=== PATIENT | female | born 1930 | race Caucasian/White ===

== ENCOUNTER 2016-04-22 11:05 | Outpatient (CLI) | payer MEDICARE, OTHER ==
[2015-07-06 10:24] VITALS: BP 118/52
== END 2016-04-22 11:07 ==
LOC: POD 11:05
PROVIDERS: ATTEND Podiatrist Public Medicine
DX: B35.1 Tinea unguium (principal); L60.0 Ingrowing nail; M79.674 Pain in right toe(s); M79.675 Pain in left toe(s)
CPT/HCPCS: 11721; G0463

== ENCOUNTER 2016-07-06 07:58 | Emergency (ER) | payer OTHER ==
--- NOTE | 2016-07-06 08:49 | ED Physician Documentation ---
Fall - HISTORIAN Historian: patient - HPI Stated Complaint: Left wrist pain/swelling Chief Complaint: Fall Onset: just prior to arrival Where: home Context: tripped, slipped, fell from standing. denies: became dizzy, fainted r: moderate Associated Symptoms:: no loss of consciousness Location of Pain/Injury: upper extremity (left) Injury to Right Extremity: none Injury to Left Extremity: other (wrist) - ROS CONST: no problems NEURO: denies: dizziness, anxiety MS/SKIN/LYMPH: denies: neck pain, back pain EYES/ENT: none CVS/RESP: none GI/: other (diarrhea x2 today) - PAST HX Past History: cardiac disease, other (Left leg 06/2015 DVT, depression, RLS; Surgeries: Right Hip, 10/2014; Lumbar Back 10/2014) Allergies/Adverse Reactions: Allergies Allergy/AdvReac Type Severity Reaction Status Date / Time cephalexin monohydrate Allergy Rash Verified 07/06/16 08:11 [From [facility]] Home Medications: Ambulatory Orders Medication Instructions Recorded Cyclosporine [Restasis] 1 drop EACHEYE BID 07/16/14 Gabapentin [Neurontin] 100 mg PO HS 07/16/14 Hydrochlorothiazide 25 mg PO D 07/16/14 Meloxicam [Meloxicam] 7.5 mg PO D 07/16/14 Pramipexole Di-HCl [Mirapex] 1.5 mg PO D 07/16/14 Sertraline HCl [Zoloft] 100 mg PO D 07/16/14 - SOCIAL HX Smoking History: non-smoker - FAMILY HX Family History: none - VITAL SIGNS Vital Signs: Vital Signs Temp Pulse Resp BP Pulse Ox 98.3 F 83 20 172/78 96 07/06/16 08:12 07/06/16 08:12 07/06/16 08:12 07/06/16 08:12 07/06/16 08:12 - REVIEWED ASSESSMENTS Nursing Assessment Reviewed: Yes Vitals Reviewed: Yes Progress - Progress Progress: Reviewed xray results with patient, explained patient would need reduction with orthopedics. Patient requested Tom. Last po intake - sip of water this morning, no breakfast Has not taken her morning medications. Confirmed with pharmacy, patient has not filled Xarelto since 06/13/2015. OCL placed. Patient rates her pain 06/19, refusing pain 09 Call from Tom - spoke with Belen. Patient to go to [facility], for consult and treatment by Dr Sarabia. ED Results Lab/Radiology - Radiology Radiology Impressions: EXAMINATION: Left wrist, three views. HISTORY: Pain and swelling after fall. FINDINGS: There is a comminuted intra-articular fracture of the distal radius present with impaction and dorsal displacement and angulation. The distal ulna is intact. There is diffuse soft tissue swelling of the wrist. There is degenerative changes with at the 1st carpometacarpal joint space. IMPRESSION: 1. Intraarticular comminuted distal radius fracture with impaction and dorsal displacement. - Orders Orders: ED Orders Category Date Time Status WRIST 3 VIEWS OR MORE [RAD] Stat Exams 07/06/16 08:12 Ordered Fall Physical Exam - Physical Exam General Appearance: mild distress Head: non-tender, no swelling, no obvious injury Neck: non-tender, painless ROM, trachea midline Eye: BRETT, EOMI, lids & conjunct. nml, ecchymosis (below left eye) Resp/CVS: chest non-tender, no ecchymosis, breath sounds nml, no resp. distress , heart sounds nml Abdomen: soft, no organomegaly, normal bowel sounds, no abdominal bruit, no distension Neuro: oriented x3, CN's nml as tested, sensation nml, motor nml, mood/affect nml, coagulating bath operator nml, reflexes nml, coagulating bath operator symmetrical Skin: color nml, no rash, nml palp., dry Back: normal inspection, no CVA tenderness Extremities: pelvis stable, hips non-tender, no pedal edema, nml ROM, nml color/ temp, other (left wrist with obvious deformity, patient unable to move due to signficant pain. Will not move fingers. ) Discharge Clincal Impression: Distal radius fracture, left Qualifiers: Encounter type: initial encounter Fracture alignment: displaced Qualified Code( s): S52.502A - Unspecified fracture of the lower end of left radius, initial encounter for closed fracture Home Medications: Ambulatory Orders Cyclosporine [Restasis] 1 drop EACHEYE BID 07/16/14 Gabapentin [Neurontin] 100 mg PO HS 07/16/14 Hydrochlorothiazide 25 mg PO D 07/16/14 Meloxicam [Meloxicam] 7.5 mg PO D 07/16/14 Pramipexole Di-HCl [Mirapex] 1.5 mg PO D 07/16/14 Sertraline HCl [Zoloft] 100 mg PO D 07/16/14 Condition: Stable Disposition: 02 XFER S[facility]M HOSP Decision to Admit: NO Decision Time: 09:14
[2016-07-06 09:17] LABS: BASOPHILS % 0.6 (0.0-1.5); EOSINOPHILS % 6.4 % (0.0-6.8); LYMPHOCYTES # 2.3 # k/uL (0.6-4.0); MEAN CORPUSCULAR HEMOGLOBIN 33.2 pg (28.0-34.0); MONOCYTES # 0.5 # k/uL (0.0-0.9); MONOCYTES % 6.6 % (0.0-11.0); NEUTROPHILS # 4.6 # k/uL (1.4-7.7)
[2016-07-06 09:30] LABS: eGFR (African) > 60; eGFR (Non-African) > 60
[2016-07-06 09:40] VITALS: BP 162/72
--- NOTE | 2016-07-06 14:21 | Diagnostic Imaging Report ---
[facility] [id number] [facility].[address] [address] Report Submission Date: Jul 06, 2016 8:34:32 AM CDT Patient Study Name: ABHIJIT CLARK Date: Jul 06, 2016 8:16:31 AM CDT Modality Type: CR Gender: F Description: UPPER EXTREMITY : 32 Institution: [facility] Physician IZZY DOWNING (CLOTH HANDLER) - ER EXAMINATION: Left wrist, three views. HISTORY: Pain and swelling after fall. FINDINGS: There is a comminuted intra-articular fracture of the distal radius present with impaction and dorsal displacement and angulation. The distal ulna is intact. There is diffuse soft tissue swelling of the wrist. There is degenerative changes with at the 1st carpometacarpal joint space. IMPRESSION: 1. Intraarticular comminuted distal radius fracture with impaction and dorsal displacement. Electronically signed on Jul 06, 2016 8:34:32 AM CDT by: Alex BAIRD
== END 2016-07-06 09:30 | disposition short-term general hospital (02) ==
LOC: ED 07:58
DX: S52.502A Unspecified fracture of the lower end of left radius, initial encounter for closed fracture (principal); W19.XXXA Unspecified fall, initial encounter; Y93.9 Activity, unspecified; Y99.9 Unspecified external cause status
CPT/HCPCS: 73110; 80053; 85025; 99283

== ENCOUNTER 2016-07-10 16:20 | Inpatient (IN) | payer SELFPAY ==
--- NOTE | 2016-07-13 10:41 | History and Physical Report ---
CHIEF COMPLAINT: Arm pain. HISTORY OF PRESENT ILLNESS: This is an 85-year-old female who has come in to [facility] for admission after she sustained a fall on July 06, 2016, and suffered a left distal radial fracture. She did see Dr. Sarabia in clinic and will see Dr. Mulligan at the [facility] on July 13. Her is being admitted to [facility] and she is unable to take care of herself at home, so she has elected to come to [facility]. She has been feeling okay, otherwise. She has had a lot of health problems in the past 2 years making her have a terrible gait and a high fall risk. She has had numerous physical therapies and has seen numerous specialists for this. She originally started out seeing Dr. Juarez and had a right total hip replacement. When that did not correct the problem, she saw Neurology and Dr. Schwartz and ended up having a laminectomy that still has not helped her ambulation problem. PAST MEDICAL HISTORY: 1. Depression. 2. Hypertension. 3. Osteoarthritis. 4. She has had a DVT in the past. 5. She has an ambulation/gait problem now. PAST SURGICAL HISTORY: 1. Appendectomy. 2. . 3. Cholecystectomy. 4. She has a colostomy for some reason. 5. Right total hip replacement in 2013. 6. L3-L5 laminectomy in January of 2015. 7. Now this distal radial fracture of the left wrist. MEDICATIONS: 1. Sertraline 100 mg daily. 2. Mirapex 1.5 mg at night. 3. Hydrochlorothiazide 12.5 mg daily. 4. Restasis 1 drop twice a day in both eyes. 5. Norvasc 5 mg daily. 6. Multivitamin daily. 7. Colace 100 mg daily. 8. Since she is taking tramadol 50 mg every 6 hours p.r.n. pain. 9. Aspirin 81 mg daily. 10. Meloxicam 7.5 mg daily. 11. Famotidine 20 mg daily. ALLERGIES: Keflex. CODE STATUS: Full code. IMMUNIZATIONS: She reports she has had: 1. A flu shot. 2. Pneumonia 23 and 13. 3. Zostavax. FAMILY HISTORY: Her dad had hypertension. He is . Her mother is . She believes she had hypertension also. PHYSICAL EXAMINATION: Vital Signs: Vital signs are documented on her chart. General: She is a well-nourished female in no acute distress. She is alert and oriented x3. She does have a slower gait and walks a little bit hunched over. She usually uses a walker. HEENT: TMs are clear. Pharynx is pink and moist. She has some bruising around her left eye. Neck: Supple. Lungs: Clear. Heart: Regular rate and rhythm without a murmur. Abdomen: Soft and nontender. Extremities: Left wrist is in a half splint. She has swelling and bruising of her fingers. Her extremities show some trace edema. ASSESSMENT AND PLAN: 1. Left distal radius fracture. We will continue with the appointment with Dr. Mulligan on Wednesday but she will need to get this hand up and elevated and get some ice on it to get the swelling down, as I think he will probably cast it on Wednesday. We will continue tramadol for pain and Colace for bowel problems. 2. Hypertension. Continue current medications. 3. Unsteady gait. We will have physical therapy evaluate the patient, though she has already been through a lot of therapy. Certainly, we will see if we can help, especially, with this wrist fracture. She may need a walker with a tray for her cast. 4. Osteoarthritis (OA). We will continue her meloxicam. MTDD
--- NOTE | 2016-07-15 16:10 | Discharge Summary ---
DATE OF DISCHARGE: July 15, 2016 DISCHARGE DIAGNOSES: 1. Left wrist fracture. 2. Depression. 3. Hypertension. 4. Osteoarthritis. History and physical has been dictated. HOSPITAL COURSE: The patient was admitted to [facility] as she was unable to take care of herself until she had left wrist surgery. She did have a mild cough. A chest x-ray was negative. We did tell her she could take some Mucinex. She was discharged on July 15, 2016, to have left wrist repair by Dr. Juan Manuel Mulligan at [facility]. MEDICATIONS ON DISCHARGE: 1. Sertraline 100 mg daily. 2. Mirapex 1.5 mg at night. 3. Hydrochlorothiazide 12.5 mg daily. 4. Restasis 1 drop in each eye b.i.d. 5. Norvasc 5 mg daily. 6. Multivitamin daily. 7. Colace 100 mg daily. 8. Tramadol 50 mg every 6 hours p.r.n. pain. 9. Aspirin 81 mg daily. 10. Meloxicam 7.5 mg daily. 11. Famotidine 20 mg daily. DISCHARGE ACTIVITY: Ad naomy. DISCHARGE DIET: Diet is n.p.o. DISCHARGE CONDITION: Good. [facility]
== END 2016-07-15 09:10 | disposition short-term general hospital (02) | DRG 563 ==
LOC: ICF 16:20
PROVIDERS: ADMIT Family Medicine; ATTEND Family Medicine
DX: S42.309A Unspecified fracture of shaft of humerus, unspecified arm, initial encounter for closed fracture (principal); X58.XXXA Exposure to other specified factors, initial encounter; Y93.9 Activity, unspecified; Y99.9 Unspecified external cause status

== ENCOUNTER 2016-07-14 08:57 | Outpatient (CLI) | payer OTHER ==
--- NOTE | 2016-07-14 18:55 | Diagnostic Imaging Report ---
[facility] [address] [facility].[address] [address] Report Submission Date: Jul 14, 2016 6:47:25 PM CDT Patient Study Name: ABHIJIT CLARK Date: Jul 14, 2016 9:28:49 AM CDT Modality Type: CR Gender: F Description: CHEST : 32 Institution: [facility] Physician: ALBERT MEAD - OP 2 views the chest Clinical history: Cough Findings: The heart size is normal. The pulmonary vasculature is normal. No pleural effusion, pneumothorax or alveolar consolidation. Impression: Negative Electronically signed on Jul 14, 2016 6:47:25 PM CDT by: Corbin BAIRD
== END 2016-07-14 09:00 ==
LOC: RAD 08:57
PROVIDERS: ATTEND Family Medicine
DX: R05 Cough (principal)
CPT/HCPCS: 71020

== ENCOUNTER 2016-07-16 13:55 | Inpatient (IN) | payer OTHER ==
--- NOTE | 2016-07-16 16:33 | History and Physical Report ---
History of Present Illnes - History of Present Illness Reason for Visit: SNF care to train for ADLs History of Present Illness: 85yo white female who recently fell and sustained a left distal radial fracture. Patient underwent an open reduction and internal fixation on 07-15-16. patient did well. Patient was admitted to the SNF unit for training of ADLs. Patient did not have any other injuries related to her fall. Patient did not have any intra or postoperative complications. - Past Medical History Cardiac: HTN Pulmonary: Other (previous DVT) Psych: Depression Musculoskeletal: Osteoarthritis (generalized), Other (gait distubance) - Past Surgical History Past Surgical History: Appendectomy, Cholecystectomy, , Total Hip Replacement (right), Other (colostomy with reversal) - Past Family History Mother Family History: , Other (HTN) Father Family History: , Other (HTN) - Past Social History Smoke: No Occupation: retired Alcohol: None Drugs: None Lives: With Family Domestic Violence: Negative - Health Maintenance Health Maintenance: Influenza Vaccine, Pneumococcal Vaccine Influenza Vaccine: Current for this Influenza Season Pneumonia Vaccine: Yes Resuscitation Status: Full code - Unable to Obtain History Unable to Obtain: Yes Review of Systems - Review of Systems Constitutional: negative: Fever, Chills, Sweats Eyes: negative: pain ENT: Other (? post nasal drainage). negative: Ear Pain, Ear Discharge, Nose Pain, Nose Discharge Respiratory: Cough, Dry. negative: Shortness of Breath, Hemoptysis, SOB with Excertion, Pleuritic Pain, Sputum Cardiovascular: negative: Chest Pain, Palpitations, Orthopnea, Paroxysmal Noc. Dyspnea, Light Headedness, Deferred Gastrointestinal: negative: Nausea, Vomiting, Abdominal Pain, Diarrhea, Constipation (last BM 2 days ago) Genitourinary: negative: Dysuria, Frequency, Incontinence, Hematuria, Retention Musculoskeletal: Arm Pain. negative: Neck Pain, Shoulder Pain, Back Pain Skin: negative: Rash, Lesions Neurological: negative: Weakness, Numbness, Incoordination, Change in Speech, Confusion, Seizures - Medications/Allergies Allergies/Adverse Reactions: Allergies Allergy/AdvReac Type Severity Reaction Status Date / Time cephalexin monohydrate Allergy Rash Verified 07/06/16 08:11 [From Keflex] Exam - Exam General: Alert, Oriented to Person, Oriented to Place, Oriented to Time, Cooperative HEENT: Atraumatic, Dentition Normal, Hearing Grossly Normal Neck: Normal Range of Motion. No: Lymphadenopathy Carotids: WNL Thyroid: WNL Lungs: Clear to auscultation, Normal air movement, Speaks full Sentences. No: Respiratory Distress, Wheezes, Rales, Rhonchi Cardiovascular: Regular rate, Normal S1, Normal S2, No murmurs. No: Gallops, Rubs Abdomen: Normal bowel sounds, Soft, No tenderness, No hepatospenomegaly, No masses Integumentary: Normal, [place], Warm, Other (swelling tot he left hand) Extremities: No clubbing, No cyanosis Neurological: Normal speech, Strength Equal Bilat, Normal tone, Sensation intact , Other (patient has had a nerve block that is slowly wearing off, she can move her finger but not normal) Psych/Mental Status: Mental status NL, Mood NL, Appropriate Affect, Intact Judgment Assessment/Plan - Assessment/Plan (1) Gait disturbance Status: Acute Current Visit: Yes Assessment: Will start PT and OT (2) Hypertension Status: Chronic Current Visit: Yes Qualifiers: Hypertension type: essential hypertension Qualified Code(s): I10 - Essential (primary) hypertension Assessment: continue with home meds (3) Depression Status: Chronic Current Visit: Yes Qualifiers: Depression Type: major depressive disorder Major depression recurrence: single episode Active/Remission status: currently active Major depression episode severity: mild Qualified Code(s): F32.0 - Major depressive disorder, single episode, mild Assessment: continue home med (4) Generalized osteoarthritis Status: Chronic Current Visit: Yes Assessment: monitor (5) History of DVT of lower extremity Status: Acute Current Visit: Yes Assessment: Lovenox prophalxis (6) Distal radius fracture, left Status: Acute Current Visit: No Qualifiers: Encounter type: subsequent encounter Fracture alignment: displaced Fracture healing: with routine healing Qualified Code(s): S52.502D - Unspecified fracture of the lower end of left radius, subsequent encounter for closed fracture with routine healing Assessment: s/p ORIF, will monitor wound, keep in a soft cast for 2 weeks then to be rechecked by ortho VTE Assessment - RISK FACTOR SCORE VTE RISK FACTOR SCORES: AGE OVER 60 YEARS, OBESITY, ANTICIPATED BED CONFINEMENT OR IMMOBILIZATION > 24 HOURS, DOCUMENTED HX OF VTE - RISK VTE HIGH RISK: SCORE OF 3-4 (RISK PROXIMAL DVT 4-8%) PROPHYLAXIS NEEDED
[2016-07-16] MEDS: HYDROcodone /APAP 5/325 1 EACH TABLET PO PRN (16:46)
[2016-07-16] MEDS ORDERED: ENOXAPARIN SODIUM 30 MG/0.3 ML DISP.SYRIN SQ ONE (17:18)
[2016-07-16] MEDS: FAMOTIDINE 20 MG TABLET PO SCH (17:21)
[2016-07-16 17:40] VITALS: BMI 34.5
[2016-07-16] MEDS ORDERED: ENOXAPARIN SODIUM 30 MG/0.3 ML DISP.SYRIN SQ SCH (18:00)
[2016-07-16] MEDS ORDERED: guaiFENesin/CODEINE PHOS 5ML SYR PO ONE (19:53)
[2016-07-16] MEDS: guaiFENesin/CODEINE PHOS 30ML BOTTLE PO PRN (19:55)
[2016-07-16] MEDS: traMADol HCL 50 MG TABLET PO PRN (19:55)
[2016-07-16] MEDS: GABAPENTIN 100 MG CAPSULE PO SCH (19:55)
[2016-07-16] MEDS: ACETAMINOPHEN 500 MG TABLET PO PRN (22:15)
[2016-07-17] MEDS: HYDROcodone /APAP 5/325 1 EACH TABLET PO PRN (04:13)
[2016-07-17] MEDS ORDERED: ASPIRIN EC 81 MG TABLET.DR ONE (04:20)
[2016-07-17] MEDS: FAMOTIDINE 20 MG TABLET PO SCH ×3 (06:10→16:48)
[2016-07-17] MEDS: traMADol HCL 50 MG TABLET PO PRN (07:41)
[2016-07-17] MEDS: SERTRALINE HCL 50 MG TABLET PO SCH (07:45)
[2016-07-17] MEDS: ASPIRIN 81 MG CHEW TAB PO SCH (07:47)
[2016-07-17] MEDS: MULTIVITAMIN 1 EACH TABLET PO SCH (07:47)
[2016-07-17] MEDS: amLODIPine BESYLATE 5 MG TABLET PO SCH (07:47)
[2016-07-17] MEDS: CHOLECALCIFEROL 1,000 UNIT TABLET PO SCH ×2 (07:48→07:49)
[2016-07-17] MEDS: HYDROCHLOROTHIAZIDE 25 MG TABLET PO SCH (07:48)
[2016-07-17] MEDS ORDERED: HYDROCHLOROTHIAZIDE 25 MG TABLET PO SCH (09:00)
[2016-07-17] MEDS: guaiFENesin/CODEINE PHOS 30ML BOTTLE PO PRN (10:31)
[2016-07-17] MEDS ORDERED: traMADol HCL 50 MG TABLET PO PRN (12:27)
[2016-07-17] MEDS: ENOXAPARIN SODIUM 30 MG/0.3 ML DISP.SYRIN SQ SCH (18:04)
[2016-07-17] MEDS ORDERED: AZITHROMYCIN 250 MG TABLET PO ONE (19:26)
[2016-07-17] MEDS: GABAPENTIN 100 MG CAPSULE PO SCH (20:36)
[2016-07-17] MEDS: traMADol HCL 50 MG TABLET PO SCH (20:38)
[2016-07-17] MEDS: ACETAMINOPHEN 500 MG TABLET PO PRN (20:38)
[2016-07-18] MEDS: FAMOTIDINE 20 MG TABLET PO SCH ×2 (06:31→16:48)
[2016-07-18] MEDS: amLODIPine BESYLATE 5 MG TABLET PO SCH (08:16)
[2016-07-18] MEDS: MULTIVITAMIN 1 EACH TABLET PO SCH (08:16)
[2016-07-18] MEDS: CHOLECALCIFEROL 1,000 UNIT TABLET PO SCH (08:16)
[2016-07-18] MEDS: SERTRALINE HCL 50 MG TABLET PO SCH (08:17)
[2016-07-18] MEDS: HYDROCHLOROTHIAZIDE 25 MG TABLET PO SCH (08:17)
[2016-07-18] MEDS: ASPIRIN 81 MG CHEW TAB PO SCH (08:17)
[2016-07-18] MEDS: AZITHROMYCIN 250 MG TABLET PO SCH (08:17)
[2016-07-18] MEDS: HYDROcodone /APAP 5/325 1 EACH TABLET PO PRN ×2 (08:20→16:48)
[2016-07-18] MEDS: traMADol HCL 50 MG TABLET PO SCH ×2 (08:23→20:22)
[2016-07-18] MEDS: ENOXAPARIN SODIUM 30 MG/0.3 ML DISP.SYRIN SQ SCH (16:48)
[2016-07-18] MEDS: GABAPENTIN 100 MG CAPSULE PO SCH (20:22)
[2016-07-19] MEDS: FAMOTIDINE 20 MG TABLET PO SCH ×2 (06:32→18:00)
[2016-07-19] MEDS: ASPIRIN 81 MG CHEW TAB PO SCH (08:29)
[2016-07-19] MEDS: HYDROCHLOROTHIAZIDE 25 MG TABLET PO SCH (08:30)
[2016-07-19] MEDS: AZITHROMYCIN 250 MG TABLET PO SCH (08:30)
[2016-07-19] MEDS: traMADol HCL 50 MG TABLET PO SCH ×2 (08:31→20:11)
[2016-07-19] MEDS: MULTIVITAMIN 1 EACH TABLET PO SCH (08:31)
[2016-07-19] MEDS: amLODIPine BESYLATE 5 MG TABLET PO SCH (08:31)
[2016-07-19] MEDS: CHOLECALCIFEROL 1,000 UNIT TABLET PO SCH (08:32)
[2016-07-19] MEDS: SERTRALINE HCL 50 MG TABLET PO SCH (08:38)
[2016-07-19] MEDS: ENOXAPARIN SODIUM 30 MG/0.3 ML DISP.SYRIN SQ SCH (18:00)
[2016-07-19] MEDS: HYDROcodone /APAP 5/325 1 EACH TABLET PO PRN (18:00)
[2016-07-19] MEDS: GABAPENTIN 100 MG CAPSULE PO SCH (20:11)
[2016-07-20] MEDS: FAMOTIDINE 20 MG TABLET PO SCH ×2 (06:16→17:12)
[2016-07-20] MEDS: HYDROcodone /APAP 5/325 1 EACH TABLET PO PRN (06:19)
[2016-07-20] MEDS: CHOLECALCIFEROL 1,000 UNIT TABLET PO SCH (08:06)
[2016-07-20] MEDS: AZITHROMYCIN 250 MG TABLET PO SCH (08:06)
[2016-07-20] MEDS: amLODIPine BESYLATE 5 MG TABLET PO SCH (08:07)
[2016-07-20] MEDS: MULTIVITAMIN 1 EACH TABLET PO SCH (08:07)
[2016-07-20] MEDS: ASPIRIN 81 MG CHEW TAB PO SCH (08:07)
[2016-07-20] MEDS: HYDROCHLOROTHIAZIDE 25 MG TABLET PO SCH (08:08)
[2016-07-20] MEDS: SERTRALINE HCL 50 MG TABLET PO SCH (08:08)
[2016-07-20] MEDS: traMADol HCL 50 MG TABLET PO SCH ×2 (08:12→20:25)
[2016-07-20] MEDS: ENOXAPARIN SODIUM 30 MG/0.3 ML DISP.SYRIN SQ SCH (17:12)
[2016-07-20] MEDS: GABAPENTIN 100 MG CAPSULE PO SCH (20:23)
[2016-07-20] MEDS: ACETAMINOPHEN 500 MG TABLET PO PRN (20:25)
[2016-07-21] MEDS: FAMOTIDINE 20 MG TABLET PO SCH ×2 (05:48→17:23)
[2016-07-21] MEDS: HYDROcodone /APAP 5/325 1 EACH TABLET PO PRN ×2 (05:49→17:23)
[2016-07-21] MEDS: ASPIRIN 81 MG CHEW TAB PO SCH (07:59)
[2016-07-21] MEDS: amLODIPine BESYLATE 5 MG TABLET PO SCH (08:00)
[2016-07-21] MEDS: MULTIVITAMIN 1 EACH TABLET PO SCH (08:00)
[2016-07-21] MEDS: HYDROCHLOROTHIAZIDE 25 MG TABLET PO SCH (08:00)
[2016-07-21] MEDS: SERTRALINE HCL 50 MG TABLET PO SCH (08:01)
[2016-07-21] MEDS: AZITHROMYCIN 250 MG TABLET PO SCH (08:01)
[2016-07-21] MEDS: CHOLECALCIFEROL 1,000 UNIT TABLET PO SCH (08:01)
[2016-07-21] MEDS: traMADol HCL 50 MG TABLET PO SCH ×2 (08:03→19:27)
--- NOTE | 2016-07-21 08:23 | Inpatient Progress Note ---
Subjective - Required Recertification Statement I anticipate X number of days because-include discharge plan: 7 - Review of Systems Subjective: Doing ok. Pain is ok. Objective - Exam Vitals and I&O: Vital Signs Temp 97.4 F L 07/21/16 08:03 Pulse 61 07/21/16 08:03 Resp 18 07/21/16 08:03 BP 133/61 07/21/16 08:03 Pulse Ox 93 07/21/16 08:03 Intake & Output 07/20/16 07/20/16 07/21/16 11:59 23:59 11:59 Intake Total 360 745 Balance 360 745 Weight 97.069 kg Intake: Oral 360 745 Other: Voiding Method Toilet Toilet # Voids 2 1 General: Alert, Oriented to Person, Oriented to Place, Oriented to Time, Cooperative, No acute distress Lungs: Clear to auscultation, Normal air movement, Speaks full Sentences Cardiovascular: Regular rate Assessment/Plan - Assessment/Plan (1) Distal radius fracture, left Status: Acute Current Visit: No Qualifiers: Encounter type: subsequent encounter Fracture alignment: displaced Fracture healing: with routine healing Qualified Code(s): S52.502D - Unspecified fracture of the lower end of left radius, subsequent encounter for closed fracture with routine healing Plan: Cont SNF care for PT/OT. Appt next week for suture removal and casting.
[2016-07-21] MEDS: ENOXAPARIN SODIUM 30 MG/0.3 ML DISP.SYRIN SQ SCH (17:23)
[2016-07-21] MEDS: GABAPENTIN 100 MG CAPSULE PO SCH (19:27)
[2016-07-22] MEDS: FAMOTIDINE 20 MG TABLET PO SCH ×2 (06:03→17:02)
[2016-07-22] MEDS: HYDROCHLOROTHIAZIDE 25 MG TABLET PO SCH (08:07)
[2016-07-22] MEDS: ASPIRIN 81 MG CHEW TAB PO SCH (08:07)
[2016-07-22] MEDS: MULTIVITAMIN 1 EACH TABLET PO SCH (08:09)
[2016-07-22] MEDS: SERTRALINE HCL 50 MG TABLET PO SCH (08:09)
[2016-07-22] MEDS: CHOLECALCIFEROL 1,000 UNIT TABLET PO SCH (08:09)
[2016-07-22] MEDS: amLODIPine BESYLATE 5 MG TABLET PO SCH (08:09)
[2016-07-22] MEDS: traMADol HCL 50 MG TABLET PO SCH ×2 (08:13→20:34)
[2016-07-22] MEDS: ENOXAPARIN SODIUM 30 MG/0.3 ML DISP.SYRIN SQ SCH (17:39)
[2016-07-22] MEDS: GABAPENTIN 100 MG CAPSULE PO SCH (20:34)
[2016-07-22] MEDS: guaiFENesin/CODEINE PHOS 5ML SYR PO PRN (22:25)
[2016-07-23] MEDS: guaiFENesin/CODEINE PHOS 5ML SYR PO PRN (03:54)
[2016-07-23] MEDS: FAMOTIDINE 20 MG TABLET PO SCH ×2 (05:59→16:41)
[2016-07-23] MEDS: amLODIPine BESYLATE 5 MG TABLET PO SCH (08:30)
[2016-07-23] MEDS: HYDROCHLOROTHIAZIDE 25 MG TABLET PO SCH (08:30)
[2016-07-23] MEDS: MULTIVITAMIN 1 EACH TABLET PO SCH (08:30)
[2016-07-23] MEDS: ASPIRIN 81 MG CHEW TAB PO SCH (08:31)
[2016-07-23] MEDS: SERTRALINE HCL 50 MG TABLET PO SCH (08:31)
[2016-07-23] MEDS: CHOLECALCIFEROL 1,000 UNIT TABLET PO SCH (08:31)
[2016-07-23] MEDS: traMADol HCL 50 MG TABLET PO SCH ×2 (09:04→20:35)
[2016-07-23] MEDS: ACETAMINOPHEN 500 MG TABLET PO PRN (16:43)
[2016-07-23] MEDS: ENOXAPARIN SODIUM 30 MG/0.3 ML DISP.SYRIN SQ SCH (19:00)
[2016-07-23] MEDS: BENZONATATE 100 MG CAPSULE PO PRN (19:00)
[2016-07-23] MEDS: GABAPENTIN 100 MG CAPSULE PO SCH (20:35)
[2016-07-24] MEDS: FAMOTIDINE 20 MG TABLET PO SCH ×2 (06:19→16:56)
[2016-07-24] MEDS: HYDROCHLOROTHIAZIDE 25 MG TABLET PO SCH (07:52)
[2016-07-24] MEDS: ASPIRIN 81 MG CHEW TAB PO SCH (07:52)
[2016-07-24] MEDS: SERTRALINE HCL 50 MG TABLET PO SCH (07:53)
[2016-07-24] MEDS: CHOLECALCIFEROL 1,000 UNIT TABLET PO SCH (07:53)
[2016-07-24] MEDS: amLODIPine BESYLATE 5 MG TABLET PO SCH (07:53)
[2016-07-24] MEDS: traMADol HCL 50 MG TABLET PO SCH (07:53)
[2016-07-24] MEDS: MULTIVITAMIN 1 EACH TABLET PO SCH (07:53)
[2016-07-24] MEDS: BENZONATATE 100 MG CAPSULE PO PRN ×2 (07:54→20:16)
[2016-07-24] MEDS: ENOXAPARIN SODIUM 30 MG/0.3 ML DISP.SYRIN SQ SCH (16:56)
[2016-07-24] MEDS: GABAPENTIN 100 MG CAPSULE PO SCH (20:07)
[2016-07-24] MEDS: guaiFENesin/CODEINE PHOS 5ML SYR PO PRN (21:38)
[2016-07-25] MEDS: FAMOTIDINE 20 MG TABLET PO SCH ×2 (05:33→17:10)
[2016-07-25] MEDS: ASPIRIN 81 MG CHEW TAB PO SCH (08:38)
[2016-07-25] MEDS: HYDROCHLOROTHIAZIDE 25 MG TABLET PO SCH (08:39)
[2016-07-25] MEDS: MULTIVITAMIN 1 EACH TABLET PO SCH (08:42)
[2016-07-25] MEDS: CHOLECALCIFEROL 1,000 UNIT TABLET PO SCH (08:42)
[2016-07-25] MEDS: amLODIPine BESYLATE 5 MG TABLET PO SCH (08:42)
[2016-07-25] MEDS: SERTRALINE HCL 50 MG TABLET PO SCH (08:43)
[2016-07-25] MEDS: BENZONATATE 100 MG CAPSULE PO PRN ×2 (11:23→21:49)
[2016-07-25] MEDS: ENOXAPARIN SODIUM 30 MG/0.3 ML DISP.SYRIN SQ SCH (18:02)
[2016-07-25] MEDS: GABAPENTIN 100 MG CAPSULE PO SCH (19:46)
[2016-07-25] MEDS: ACETAMINOPHEN 500 MG TABLET PO PRN (22:45)
[2016-07-26] MEDS: guaiFENesin/CODEINE PHOS 5ML SYR PO PRN ×2 (01:27→23:00)
[2016-07-26] MEDS: FAMOTIDINE 20 MG TABLET PO SCH ×2 (06:10→16:34)
[2016-07-26] MEDS: amLODIPine BESYLATE 5 MG TABLET PO SCH (08:30)
[2016-07-26] MEDS: MULTIVITAMIN 1 EACH TABLET PO SCH (08:30)
[2016-07-26] MEDS: CHOLECALCIFEROL 1,000 UNIT TABLET PO SCH (08:30)
[2016-07-26] MEDS: HYDROCHLOROTHIAZIDE 25 MG TABLET PO SCH (08:31)
[2016-07-26] MEDS: ASPIRIN 81 MG CHEW TAB PO SCH (08:33)
[2016-07-26] MEDS: SERTRALINE HCL 50 MG TABLET PO SCH (08:34)
[2016-07-26] MEDS: ENOXAPARIN SODIUM 30 MG/0.3 ML DISP.SYRIN SQ SCH (17:52)
[2016-07-26] MEDS: GABAPENTIN 100 MG CAPSULE PO SCH (19:50)
[2016-07-26] MEDS: LORATADINE 10 MG TABLET PO SCH (19:51)
[2016-07-26] MEDS: HYDROcodone /APAP 5/325 1 EACH TABLET PO PRN (23:00)
[2016-07-27] MEDS: ACETAMINOPHEN 500 MG TABLET PO PRN (01:25)
[2016-07-27] MEDS: FAMOTIDINE 20 MG TABLET PO SCH ×2 (05:16→17:58)
[2016-07-27] MEDS ORDERED: HYPROMELLOSE OPTH DROPS OP PRN (08:46)
[2016-07-27] MEDS: CHOLECALCIFEROL 1,000 UNIT TABLET PO SCH (08:53)
[2016-07-27] MEDS: amLODIPine BESYLATE 5 MG TABLET PO SCH (08:54)
[2016-07-27] MEDS: HYDROCHLOROTHIAZIDE 25 MG TABLET PO SCH (08:54)
[2016-07-27] MEDS: SERTRALINE HCL 50 MG TABLET PO SCH (08:54)
[2016-07-27] MEDS: MULTIVITAMIN 1 EACH TABLET PO SCH (08:54)
[2016-07-27] MEDS: ASPIRIN 81 MG CHEW TAB PO SCH (08:54)
[2016-07-27] MEDS: PRAMIPEXOLE DI HCL 1.5 MG PO SCH (11:31)
[2016-07-27] MEDS: ENOXAPARIN SODIUM 30 MG/0.3 ML DISP.SYRIN SQ SCH (17:58)
[2016-07-27] MEDS: BENZONATATE 100 MG CAPSULE PO PRN (20:35)
[2016-07-27] MEDS: GABAPENTIN 100 MG CAPSULE PO SCH (20:35)
[2016-07-27] MEDS: LORATADINE 10 MG TABLET PO SCH (20:36)
[2016-07-27] MEDS: rOPINIRole HCL 1 MG TABLET PO SCH (20:36)
[2016-07-27] MEDS: HYDROcodone /APAP 5/325 1 EACH TABLET PO PRN (20:38)
[2016-07-28] MEDS: FAMOTIDINE 20 MG TABLET PO SCH ×2 (06:24→16:15)
[2016-07-28] MEDS ORDERED: TUBERCULIN,PURIF.PROT.DERIV. 5 TU/0.1 ML ID ONE (07:41)
[2016-07-28] MEDS: SERTRALINE HCL 50 MG TABLET PO SCH (08:32)
[2016-07-28] MEDS: LORATADINE 10 MG TABLET PO SCH (08:32)
[2016-07-28] MEDS: HYDROCHLOROTHIAZIDE 25 MG TABLET PO SCH (08:33)
[2016-07-28] MEDS: MULTIVITAMIN 1 EACH TABLET PO SCH (08:33)
[2016-07-28] MEDS: amLODIPine BESYLATE 5 MG TABLET PO SCH (08:33)
[2016-07-28] MEDS: ASPIRIN 81 MG CHEW TAB PO SCH (08:33)
[2016-07-28] MEDS: CHOLECALCIFEROL 1,000 UNIT TABLET PO SCH (08:33)
[2016-07-28] MEDS: PRAMIPEXOLE DI HCL 1.5 MG PO SCH (14:28)
[2016-07-28] MEDS: ENOXAPARIN SODIUM 30 MG/0.3 ML DISP.SYRIN SQ SCH (17:44)
[2016-07-28] MEDS: GABAPENTIN 100 MG CAPSULE PO SCH (20:32)
[2016-07-28] MEDS: rOPINIRole HCL 1 MG TABLET PO SCH (20:33)
[2016-07-28] MEDS: BENZONATATE 100 MG CAPSULE PO PRN (20:34)
[2016-07-28] MEDS: guaiFENesin/CODEINE PHOS 5ML SYR PO PRN (21:43)
[2016-07-29] MEDS: FAMOTIDINE 20 MG TABLET PO SCH ×2 (06:04→17:26)
[2016-07-29] MEDS: ASPIRIN 81 MG CHEW TAB PO SCH (08:04)
[2016-07-29] MEDS: CHOLECALCIFEROL 1,000 UNIT TABLET PO SCH (08:05)
[2016-07-29] MEDS: PRAMIPEXOLE DI HCL 1.5 MG PO SCH (08:05)
[2016-07-29] MEDS: MULTIVITAMIN 1 EACH TABLET PO SCH (08:05)
[2016-07-29] MEDS: LORATADINE 10 MG TABLET PO SCH ×2 (08:05→20:08)
[2016-07-29] MEDS: SERTRALINE HCL 50 MG TABLET PO SCH (08:05)
[2016-07-29] MEDS: amLODIPine BESYLATE 5 MG TABLET PO SCH (08:05)
[2016-07-29] MEDS: HYDROCHLOROTHIAZIDE 25 MG TABLET PO SCH (08:05)
[2016-07-29] MEDS: ENOXAPARIN SODIUM 30 MG/0.3 ML DISP.SYRIN SQ SCH (17:28)
[2016-07-29] MEDS: GABAPENTIN 100 MG CAPSULE PO SCH (20:07)
[2016-07-29] MEDS: rOPINIRole HCL 1 MG TABLET PO SCH (20:09)
[2016-07-29] MEDS: BENZONATATE 100 MG CAPSULE PO PRN (20:10)
[2016-07-29] MEDS: guaiFENesin/CODEINE PHOS 5ML SYR PO PRN (22:15)
[2016-07-30] MEDS: FAMOTIDINE 20 MG TABLET PO SCH (05:51)
--- NOTE | 2016-07-30 07:54 | Discharge Summary ---
Discharge Summary - Discharge Sumary History of Present Illness: 85yo white female who recently fell and sustained a left distal radial fracture. Patient underwent an open reduction and internal fixation on 07-15-16. patient did well. Patient was admitted to the SNF unit for training of ADLs. Patient did not have any other injuries related to her fall. Patient did not have any intra or postoperative complications. Condition at Discharge: Stable Home Medications: Ambulatory Orders Medication Instructions Recorded Cyclosporine [Restasis] 1 drop EACHEYE BID 07/16/14 Gabapentin [Neurontin] 100 mg PO HS 07/16/14 Hydrochlorothiazide 25 mg PO D 07/16/14 Meloxicam 7.5 mg PO D 07/16/14 Pramipexole Di-HCl [Mirapex] 1.5 mg PO D 07/16/14 Sertraline HCl [Zoloft] 100 mg PO D 07/16/14 Acetaminophen [Tylenol Extra 500 mg PO TID PRN #0 tablet 07/28/16 Strength] Aspirin [Carey] 81 mg PO DAILY tab.chew 07/28/16 Cholecalciferol [Vitamin D-3] 2,000 unit PO DAILY tablet 07/28/16 amLODIPine BESYLATE [Norvasc] 5 mg PO DAILY tablet 07/28/16 Consultations this Visit: None Procedures this Visit: None Allergies/Adverse Reactions: Allergies Allergy/AdvReac Type Severity Reaction Status Date / Time cephalexin monohydrate Allergy Rash Verified 07/06/16 08:11 [From Keflex] Patient Problems: Current Active Problems Problem Status Onset Gait disturbance Acute History of DVT of lower extremity Acute Depression Chronic Generalized osteoarthritis Chronic Hypertension Chronic Discharge Summary: Patient was admitted to SNF for therapy after undergoing L distal radius repair. She did well with therapy. Due to balance issues, she needs a walker. With the distal radius fracture, she requires a platform to rest that wrist on. She progressed to meet therapy goals and was discharged home with her son to continue home health. Hospital Course: Discharge Dx: L distal radius fx. Weakness. Falls. HTN. Depression. RLS. Disposition - to [place] with her son.
[2016-07-30 08:01] VITALS: BP 161/80
[2016-07-30] MEDS: LORATADINE 10 MG TABLET PO SCH (09:33)
[2016-07-30] MEDS: ASPIRIN 81 MG CHEW TAB PO SCH (09:33)
[2016-07-30] MEDS: HYDROCHLOROTHIAZIDE 25 MG TABLET PO SCH (09:34)
[2016-07-30] MEDS: PRAMIPEXOLE DI HCL 1.5 MG PO SCH (09:35)
[2016-07-30] MEDS: amLODIPine BESYLATE 5 MG TABLET PO SCH (09:35)
[2016-07-30] MEDS: SERTRALINE HCL 50 MG TABLET PO SCH (09:36)
[2016-07-30] MEDS: CHOLECALCIFEROL 1,000 UNIT TABLET PO SCH (09:36)
[2016-07-30] MEDS: MULTIVITAMIN 1 EACH TABLET PO SCH (09:37)
== END 2016-07-30 11:40 | DRG 561 ==
LOC: SOUTH 13:55
PROVIDERS: ADMIT Family Medicine; ATTEND Family Medicine
DX: S52.502D Unspecified fracture of the lower end of left radius, subsequent encounter for closed fracture with routine healing (principal); R53.1 Weakness; Z91.81 History of falling; I10 Essential (primary) hypertension; F32.9 Major depressive disorder, single episode, unspecified
CPT/HCPCS: J1650; A9270-GY

== ENCOUNTER 2016-07-24 12:55 | Outpatient (CLI) | payer OTHER ==
[2016-07-24 07:59] VITALS: BP 152/66
== END 2016-07-24 12:56 ==
LOC: POD 12:55
PROVIDERS: ATTEND Podiatrist
DX: B35.1 Tinea unguium (principal); M79.674 Pain in right toe(s); M79.675 Pain in left toe(s)
CPT/HCPCS: G0463

== ENCOUNTER 2016-09-24 13:38 | Emergency (ER) | payer OTHER ==
[2016-09-24] MEDS: KETOROLAC TROMETHAMINE 60 MG/2 ML VIAL IM ONE (14:20)
[2016-09-24 14:31] LABS: BASOPHILS % 0.6 (0.0-1.5); EOSINOPHILS % 0.8 % (0.0-6.8); MEAN CORPUSCULAR HEMOGLOBIN 31.3 pg (28.0-34.0); MEAN CORPUSCULAR VOLUME 95.7 fl (80.0-100.0); MONOCYTES % 3.8 % (0.0-11.0); NEUTROPHILS # 3.2 # k/uL (1.4-7.7)
[2016-09-24 14:53] LABS: eGFR (African) > 60; eGFR (Non-African) > 60
--- NOTE | 2016-09-24 15:59 | Diagnostic Imaging Report ---
[facility] [address] [facility] [address] [place], [place]. [address] Report Submission Date: Sep 24, 2016 2:40:22 PM CDT Patient Study Name: ABHIJIT CLARK Date: Sep 24, 2016 2:07:28 PM CDT Modality Type: CT\SR Gender: F Description: CT BRAIN W/O CONTRAST : 32 Institution: [facility] Physician ANNE COWART - CT Brain without Contrast History: NECK PAIN AND HEAD THROBBING SINCE WEDNESDAY Technique: Transaxial CT was performed without contrast from the skull base to the vertex. Findings: Scattered bilateral white matter hypodensity is present, consistent with gliosis. Mild cerebral atrophy is present. The lateral ventricles are mildly dilated. No hemorrhage or edema-producing mass. The fourth ventricle is midline. The paranasal sinuses are clear. No skull fracture. The mastoid air cells are well developed and well aerated. Impression: 1. Mild cerebral atrophy and white matter gliosis. 2. No acute cerebral pathology. Electronically signed on Sep 24, 2016 2:40:22 PM CDT by: Alex Navarro [facility]PITALTangela
--- NOTE | 2016-09-24 15:59 | Diagnostic Imaging Report ---
[facility] [address] [facility] [address] [place] [address]. [address] Report Submission Date: Sep 24, 2016 2:43:10 PM CDT Patient Study Name: ABHIJIT CLARK Date: Sep 24, 2016 2:09:52 PM CDT Modality Type: CT\SR Gender: F Description: CT C-SPINE W/O CONTRAS : 32 Institution: [facility] Physician ANNE COWART - ER EXAMINATION: CT cervical spine without contrast HISTORY: Neck pain TECHNIQUE: Tomographic images of the cervical spine were obtained without the use of intravenous contrast according to standard protocol. FINDINGS: There is no evidence of acute fracture. There is no subluxation. The odontoid process is intact. There is intervertebral disc space narrowing at multiple levels including C4-C5 , C5-C6, and C6-C7. There is right paracentral disc bulge and spurring present at these levels resulting in right neural foraminal stenosis. There is also mild central canal stenosis at C6-C7 . There is atherosclerosis of the aorta. The lung apices are clear. IMPRESSION: 1. No acute fracture subluxation. 2. Multilevel spondylosis as described above. Electronically signed on Sep 24, 2016 2:43:10 PM CDT by: Alex BAIRD
[2016-09-24 17:06] VITALS: BP 142/71
--- NOTE | 2016-09-24 22:14 | ED Physician Documentation ---
Headache - HISTORIAN Historian: patient - HPI Stated Complaint: pain head Chief Complaint: Headache Additional Information: since 09/21/16 Onset: days ago (3) Timing: still present Exposure To: none Severity: moderate Quality: throbbing Associated Symptoms: neck pain. denies: fever, chills, sweating, problems with vision, sensitivity to light, nausea, vomiting, speech problems, weakness, trouble walking, tingling, numbness, dizziness, light-headedness Preceding Symptoms: denies: visual disturbance, scotoma, typical of prior aura(s ) Exacerbated By: denies: light, noise, movement, position Further Comments: no - ROS NEURO/PSYCH: denies: confusion, anxiety, depression, fainting EYES/ENT: denies: sore throat, difficulty swallowing, sinus pain, drainage CVS/RESP: none GI/: denies: abdominal pain, diarrhea, problems urinating, incontinence MS/SKIN/LYMPH: denies: muscle aches, back pain, rash, skin lesions, swollen glands all systems neg except as marked: Yes - PAST HX Medical History: other (see nurses notes) Surgical History: other (see nurses notes) Immunizations: referred to PCP Allergies/Adverse Reactions: Allergies Allergy/AdvReac Type Severity Reaction Status Date / Time cephalexin monohydrate Allergy Rash Verified 09/24/16 14:16 [From Keflex] Home Medications: Ambulatory Orders Medication Instructions Recorded Cyclosporine [Restasis] 1 drop EACHEYE BID 07/16/14 Gabapentin [Neurontin] 100 mg PO HS 07/16/14 Hydrochlorothiazide 25 mg PO D 07/16/14 Meloxicam 7.5 mg PO D 07/16/14 Pramipexole Di-HCl [Mirapex] 1.5 mg PO D 07/16/14 Sertraline HCl [Zoloft] 100 mg PO D 07/16/14 Acetaminophen [Tylenol Extra 500 mg PO TID PRN #0 tablet 07/28/16 Strength] Aspirin [Carey] 81 mg PO DAILY tab.chew 07/28/16 Cholecalciferol [Vitamin D-3] 2,000 unit PO DAILY tablet 07/28/16 amLODIPine BESYLATE [Norvasc] 5 mg PO DAILY tablet 07/28/16 - SOCIAL HX Smoking History: non-smoker Alcohol Use: none Drug Use: none - Family HX Family History: none - VITAL SIGNS Vital Signs: Vital Signs Temp Pulse Resp BP Pulse Ox 37.1 F L 63 18 142/71 98 09/24/16 17:04 09/24/16 17:04 09/24/16 17:04 09/24/16 17:04 09/24/16 17:04 - REVIEWED ASSESSMENTS Nursing Assessment Reviewed: Yes Vitals Reviewed: Yes Progress - Results/Orders Results/Orders: ct head and c-spine, cbc, cmp, ua ordered - Progress Progress: pt. given 30 mg toradol ivp with improvement in er Critical Care Note - Critical Care Note Total Time (mins): 0 ED Results Lab/Radiology - Lab Results Lab Results: Lab Results 09/24/16 09/24/16 14:25 14:25 WBC 4.90 K/ul K/ul (4.00-12.00) RBC 4.31 M/ul M/ul (3.90-5.20) Hgb 13.5 g/dL g/dL (12.0-16.0) Hct 41.3 % % (34.5-46.5) MCV 95.7 fl fl (80.0-100.0) MCH 31.3 pg pg (28.0-34.0) MCHC 32.8 g/dL g/dL (30.0-36.0) RDW 13.4 % % (11.3-14.3) Plt Count 142 K/mm3 K/mm3 (130-400) Neut % (Auto) 64.8 % % (39.0-79.0) Lymph % (Auto) 27.8 % % (16.0-50.0) [place] % (Auto) 3.8 % % (0.0-11.0) Eos % (Auto) 0.8 % % (0.0-6.8) Baso % (Auto) 0.6 (0.0-1.5) Neut # 3.2 # k/uL # k/uL (1.4-7.7) Lymph # 1.4 # k/uL # k/uL (0.6-4.0) [place] # 0.2 # k/uL # k/uL (0.0-0.9) Eos # 0.0 # k/uL # k/uL (0.0-0.6) Baso # 0.0 # k/uL # k/uL (0.0-0.5) Reactive Lymphs % 2.2 % % (0.0-5.0) Reactive Lymphs # 0.1 # k/uL # k/uL (0.0-0.8) Sodium 141 mmol/L mmol/L (136-145) Potassium 3.6 mmol/L mmol/L (3.5-5.0) Chloride 95 mmol/L L mmol/L (98-110) Carbon Dioxide 28 mmol/L mmol/L (20-32) BUN 20 mg/dL mg/dL (10-26) Creatinine 1.1 mg/dL mg/dL (0.4-1.5) Estimated Creat Clear 68 Est GFR ( Amer) > 60 (60 - ) Est GFR (Non-Af Amer) > 60 (60 - ) Glucose 123 mg/dL H mg/dL (70-99) Calcium 9.3 mg/dL mg/dL (8.5-10.5) Total Bilirubin 0.3 mg/dL mg/dL (0.2-1.2) AST 35 U/L U/L (0-41) ALT 23 U/L U/L (0-45) Alkaline Phosphatase 65 U/L U/L (46-116) Total Protein 7.1 g/dL g/dL (6.0-8.5) Albumin 3.9 g/dL g/dL (3.0-5.5) - Radiology Radiology Impressions: ct head and c-spine neg except for some osteophytes - Orders Orders: ED Orders Category Date Time Status CT BRAIN W/O CONTRAST Stat Exams 09/24/[address] C-SPINE W/O CONTRAST Stat Exams 09/24/16 Completed CBC/PLATELET/DIFF Routine Lab 09/24/16 14:25 Completed CMP Routine Lab 09/24/16 14:25 Completed URINALYSIS Routine Lab 09/24/16 14:01 Ordered Ketorolac Tromethamine [Toradol] Med 09/24/16 14:02 Discontinued 60 mg IM NOW ONE Oxygen Daily Oxygen 09/24/16 14:45 Ordered Headache Physical Exam - EXAM General Appearance: alert, mild distress EENT: no facial swelling, eyes nml inspection Neck: thyroid normal, other (tenderness left occipital area) Respiratory: no resp distress, chest non-tender, breath sounds normal CVS: reg. rate & rhythm, heart sounds nml Abdomen: non-tender, no organomegaly, nml bowel sounds Skin: color nml, no rash Extremitites: non-tender, normal range of motion, no evidence of injury, no edema - NEURO/PSYCH Higher Functions: alert, oriented x3 Cranial: nml as tested, no evidence of acute CVA Cerebellar: nml as tested Sensorimotor: motor nml, sensation nml Discharge Clincal Impression: Muscle tension headache Referrals: Hang Suarez MD [Primary Care Provider] - 2 Days Home Medications: Ambulatory Orders Cyclosporine [Restasis] 1 drop EACHEYE BID 07/16/14 Gabapentin [Neurontin] 100 mg PO HS 07/16/14 Hydrochlorothiazide 25 mg PO D 07/16/14 Meloxicam 7.5 mg PO D 07/16/14 Pramipexole Di-HCl [Mirapex] 1.5 mg PO D 07/16/14 Sertraline HCl [Zoloft] 100 mg PO D 07/16/14 Acetaminophen [Tylenol Extra Strength] 500 mg PO TID PRN #0 tablet 07/28/16 Aspirin [Carey] 81 mg PO DAILY tab.chew 07/28/16 Cholecalciferol [Vitamin D-3] 2,000 unit PO DAILY tablet 07/28/16 amLODIPine BESYLATE [Norvasc] 5 mg PO DAILY tablet 07/28/16 Comments: discharged with scripts for parafon forte dsc 500 mg 1 p.o. qid and meloxicam 7.5 mg 1 p.o. bid x 5 days Condition: Stable Disposition: 01 HOME, SELF-CARE Decision to Admit: NO Decision Time: 17:00
[2016-09-25 05:13] LABS: APPEARANCE,URINE CLEAR (CLEAR); COLOR,URINE YELLOW (YELLOW); OCCULT BLOOD,URINE 1+ (NEGATIVE); PH URINE 5.5 (5.0 - 8.0); UROBILINOGEN URINE 0.2 Eu (0.2-1.0)
== END 2016-09-24 17:04 | disposition home or self-care (01) ==
LOC: ED 13:38
DX: G44.209 Tension-type headache, unspecified, not intractable (principal)
CPT/HCPCS: 36415; 70450; 72125; 80053; 81002; 85025; 99283; J1885

== ENCOUNTER 2016-10-02 09:16 | Emergency (ER) | payer OTHER ==
[2016-10-02 09:37] VITALS: BP 145/71
--- NOTE | 2016-10-02 09:56 | ED Physician Documentation ---
Lower Extremity Problem - HISTORIAN Historian: patient, child - HPI Stated Complaint: right knee pain Chief Complaint: Lower Extremity Problem Additional Information: chronic rt knee pain Onset: days ago (months has been to several different doctors fail to find etiol ) Timing: still present, worse Duration: intermittent episodes Recent Injury: No Severity: moderate (walks w/2 canes) Quality: pain, tenderness, tingling Exacerbated By: nothing, walking, movement Relieved By: nothing Further Comments: yes (has had rt hip surgery-little help) - ROS CONST: no problems CVS/RESP: denies: chest pain, shortness of breath GI/: denies: abdominal pain, problems urinating NERUO/PSYCH: difficulty walking - PAST HX Past History: intervertebral disc dis. PE Risk Factors: hypertension Other History: other (djd) Surgeries/Procedures: back surgery, appendectomy, cholecystectomy, Allergies/Adverse Reactions: Allergies Allergy/AdvReac Type Severity Reaction Status Date / Time cephalexin monohydrate Allergy Rash Verified 10/02/16 09:37 [From Keflex] Home Medications: Ambulatory Orders Medication Instructions Recorded Cyclosporine [Restasis] 1 drop EACHEYE BID 07/16/14 Gabapentin [Neurontin] 100 mg PO HS 07/16/14 Hydrochlorothiazide 25 mg PO D 07/16/14 Meloxicam 7.5 mg PO D 07/16/14 Pramipexole Di-HCl [Mirapex] 1.5 mg PO D 07/16/14 Sertraline HCl [Zoloft] 100 mg PO D 07/16/14 Acetaminophen [Tylenol Extra 500 mg PO TID PRN #0 tablet 07/28/16 Strength] Aspirin [Carey] 81 mg PO DAILY tab.chew 07/28/16 Cholecalciferol [Vitamin D-3] 2,000 unit PO DAILY tablet 07/28/16 amLODIPine BESYLATE [Norvasc] 5 mg PO DAILY tablet 07/28/16 - SOCIAL HX Smoking History: non-smoker Alcohol Use: none Drug Use: none - FAMILY HX Family History: no significant history - VITAL SIGNS Vital Signs: Vital Signs Temp Pulse Resp BP Pulse Ox 98.0 F 70 16 145/71 93 10/02/16 09:27 10/02/16 09:27 10/02/16 09:27 10/02/16 09:27 10/02/16 09:27 - REVIEWED ASSESSMENTS Nursing Assessment Reviewed: Yes Vitals Reviewed: Yes Lower Extremity Problem - EXAM General Appearance: moderate distress Neuro/Tendon: no evidence tendon injury, sensory deficit RESPIRATORY: no resp distress, chest non-tender, breath sounds normal CVS: reg rate & rhythm, heart sounds normal JOINT: No: joints nml, nml ROM, Nml gait/weight bearing VASCULAR: no vascular compromise NEURO/PSYCH: oriented X3, motor nml, sensation nml, mood/affect nml, cognition normal SKIN: warm/dry, normal color. No: cyanosis, diaphoresis, jaundice Discharge Clincal Impression: chronic rt knee pain Referrals: Hang Suarez MD [Primary Care Provider] - 2 Days Home Medications: Ambulatory Orders Cyclosporine [Restasis] 1 drop EACHEYE BID 07/16/14 Gabapentin [Neurontin] 100 mg PO HS 07/16/14 Hydrochlorothiazide 25 mg PO D 07/16/14 Meloxicam 7.5 mg PO D 07/16/14 Pramipexole Di-HCl [Mirapex] 1.5 mg PO D 07/16/14 Sertraline HCl [Zoloft] 100 mg PO D 07/16/14 Acetaminophen [Tylenol Extra Strength] 500 mg PO TID PRN #0 tablet 07/28/16 Aspirin [Carey] 81 mg PO DAILY tab.chew 07/28/16 Cholecalciferol [Vitamin D-3] 2,000 unit PO DAILY tablet 07/28/16 amLODIPine BESYLATE [Norvasc] 5 mg PO DAILY tablet 07/28/16 Comments: must get under care orthopedic surgeon and f/u as directed-apparently she sees several different phys"they say they cant help me". she under staands this tkoday will just be temporary. Condition: Fair Disposition: 01 HOME, SELF-CARE Decision to Admit: NO Decision Time: 09:56
== END 2016-10-02 09:58 | disposition home or self-care (01) ==
LOC: ED 09:16
DX: M25.561 Pain in right knee (principal)
CPT/HCPCS: 99283

== ENCOUNTER 2016-10-21 08:37 | Outpatient (CLI) | payer OTHER ==
[2016-07-22 09:34] VITALS: BP 136/67
== END 2016-10-21 08:40 ==
LOC: POD 08:37
PROVIDERS: ATTEND Podiatrist Public Medicine
DX: B35.1 Tinea unguium (principal); L60.0 Ingrowing nail; M79.675 Pain in left toe(s); M79.674 Pain in right toe(s)
CPT/HCPCS: 11721; G0463

== ENCOUNTER 2017-02-27 09:06 | Emergency (ER) | payer OTHER ==
[2017-02-27] MEDS ORDERED: methylPREDNISolone ACETATE 80 MG/ML VIAL IM ONE (09:19)
[2017-02-27] MEDS ORDERED: methylPREDNISolone ACETATE 80 MG/ML VIAL IM PRN (09:20)
[2017-02-27 09:21] VITALS: BP 169/77
--- NOTE | 2017-02-27 09:37 | ED Physician Documentation ---
General Adult - HISTORIAN Historian: patient, spouse - HPI Stated Complaint: back pain Chief Complaint: General Adult Additional Information: mid dorsal exab back pain after reached high to get object then return it approx 1 week ago Timing: still present, persistent since Severity: moderate Further Comments: yes (has sig chronic back pain and rheumatoid plus djd and anxiety=-accd to daughter) - ROS CONST: no problems EYES/ENT: denies: problems with vision CVS/RESP: none GI/: none MS/SKIN/LYMPH: none NEURO/PSYCH: denies: headache, fainting, dizziness - PAST HX Past History: hypertension, other (djd rheumatoid) Allergies/Adverse Reactions: Allergies Allergy/AdvReac Type Severity Reaction Status Date / Time cephalexin monohydrate Allergy Rash Verified 02/27/17 09:09 [From [facility]] Home Medications: Ambulatory Orders Medication Instructions Recorded Cyclosporine [Restasis] 1 drop EACHEYE BID 07/16/14 Gabapentin [Neurontin] 100 mg PO HS 07/16/14 Hydrochlorothiazide 25 mg PO D 07/16/14 Meloxicam 7.5 mg PO D 07/16/14 Pramipexole Di-HCl [Mirapex] 1.5 mg PO D 07/16/14 Sertraline HCl [Zoloft] 100 mg PO D 07/16/14 Acetaminophen [Tylenol Extra 500 mg PO TID PRN #0 tablet 07/28/16 Strength] Aspirin [Carey] 81 mg PO DAILY tab.chew 07/28/16 Cholecalciferol [Vitamin D-3] 2,000 unit PO DAILY tablet 07/28/16 amLODIPine BESYLATE [Norvasc] 5 mg PO DAILY tablet 07/28/16 Hydrocodone/Acetaminophen 1 - 2 tab PO Q6 PRN 02/27/17 [Hydrocodon-Acetaminophn 10-325] Lorazepam [Ativan] 0.5 mg PO HS #10 tablet 02/27/17 Vit C/E/Zn/Coppr/Lutein/Zeaxan 1 tab PO DAILY 02/27/17 [Preservision Areds 2 Softgel] predniSONE [Deltasone] 5 mg PO DAILY 02/27/17 predniSONE [Deltasone] 10 mg PO TID #12 tablet 02/27/17 - SOCIAL HX Smoking History: non-smoker Alcohol Use: none Drug Use: none - FAMILY HX Family History: No - VITAL SIGNS Vital Signs: Vital Signs Temp Pulse Resp BP Pulse Ox 98.0 F 82 19 169/77 97 02/27/17 09:10 02/27/17 09:10 02/27/17 09:10 02/27/17 09:10 02/27/17 09:10 - REVIEWED ASSESSMENTS Nursing Assessment Reviewed: Yes Vitals Reviewed: Yes ED Results Lab/Radiology - Orders Orders: ED Orders Category Date Time Status methylPREDNISolone ACETATE [Depo-Medrol] Med 02/27/17 09:19 Discontinued 80 mg IM .STK-MED ONE methylPREDNISolone ACETATE [Depo-Medrol] Med 02/27/17 09:20 Ordered 80 mg IM NOW PRN General Adult Physical Exam - PHYSICAL EXAM GENERAL APPEARANCE: moderate distress EENT: eye inspection normal NECK: normal inspection RESPIRATORY: no resp distress CVS: reg rate & rhythm, heart sounds normal ABDOMEN: soft, non-tender BACK: CVA tenderness (R), CVA tenderness (L) SKIN: warm/dry, normal color. No: cyanosis, diaphoresis, jaundice EXTREMITIES: non-tender, normal range of motion NEURO: oriented X3, motor nml, sensation nml, mood/affect nml Discharge Clincal Impression: acute exaberation chronid back pain, rheumatoid arthritis htn, chroic anxiety Prescriptions: Lorazepam [Ativan] 0.5 mg PO HS #10 tablet predniSONE [Deltasone] 10 mg PO TID #12 tablet Referrals: Primary Doctor,No [Primary Care Provider] - 2 Days Comments: spoke to daughter per phone Condition: Good Disposition: 01 HOME, SELF-CARE Decision to Admit: NO Decision Time: 09:41
== END 2017-02-27 09:46 | disposition home or self-care (01) ==
LOC: ED 09:06
DX: M54.89 Other dorsalgia (principal); M06.9 Rheumatoid arthritis, unspecified; I10 Essential (primary) hypertension; F41.9 Anxiety disorder, unspecified
CPT/HCPCS: 99283; J1040

== ENCOUNTER → 2017-03-19 | Outpatient (CLI) | payer OTHER ==
[2017-02-27 09:21] VITALS: BP 169/77
[2017-03-19 11:00] LABS: BASOPHILS % 0.5 (0.0-1.5); EOSINOPHILS % 4.6 % (0.0-6.8); MEAN CORPUSCULAR VOLUME 97.8 fl (80.0-100.0); MONOCYTES % 5.3 % (0.0-11.0); NEUTROPHILS # 5.9 # k/uL (1.4-7.7)
[2017-03-19 11:04] LABS: APPEARANCE,URINE Slightly Cloudy (CLEAR); COLOR,URINE Yellow (YELLOW); OCCULT BLOOD,URINE Negative (NEGATIVE); UROBILINOGEN URINE 0.2 Eu (0.2-1.0)
[2017-03-19 11:32] LABS: eGFR (African) > 60; eGFR (Non-African) > 60
== END ==
LOC: LAB 10:19
PROVIDERS: ATTEND Pain Medicine Interventional Pain Medicine
DX: R35.0 Frequency of micturition (principal); E55.9 Vitamin D deficiency, unspecified; Z79.01 Long term (current) use of anticoagulants; Z01.812 Encounter for preprocedural laboratory examination
CPT/HCPCS: 36415; 80048; 81002; 82306; 83970; 84155; 84165; 85025; 85610; 85651; 85730; 86140; 87086

== ENCOUNTER 2017-04-21 08:42 | Outpatient (CLI) | payer OTHER | END 2017-04-21 08:43 | LOC: POD 08:42 | PROVIDERS: ATTEND Podiatrist Public Medicine | DX: B35.1 Tinea unguium (principal); L60.0 Ingrowing nail; M79.674 Pain in right toe(s); M79.675 Pain in left toe(s) | CPT/HCPCS: 11721; G0463 ==

== ENCOUNTER 2017-04-23 11:00 | Outpatient (CLI) | payer OTHER ==
--- NOTE | 2017-04-26 13:10 | CONSULTATION REPORT ---
Dear Dr. Suarez: HISTORY OF PRESENT ILLNESS: I understand you have been taking care of Seda Bautista. This is a lady I first met on December 23, 2016, for arthritis. As it turns out, she has seropositive rheumatoid arthritis. I managed to get her down to 5 mg of prednisone and Plaquenil and she seems to do well with that. However, since I last saw her, she fell and had a thoracic spine fracture and underwent either a kyphoplasty or a vertebroplasty with Dr. Ganesh Rai. She came to see me at my [facility]. Most of her pain continues to be in the thoracic spine and some radiating into the left buttock. Otherwise, she denied any significant joint swelling of her hands and wrists. She has been under a lot of stress. Her suffers from dementia and apparently had an "aneurysm." Things are difficult at home. PAST MEDICAL HISTORY: 1. Right hip replacement. 2. Hypertension. 3. COPD. 4. Depression. 5. Obstructive sleep apnea. 6. Osteoarthritis. 7. Appendectomy. 8. . 9. Colostomy with reversal. 10. History of DVT. REVIEW OF SYSTEMS: No fevers, chills, sweats, chest pain, nausea, vomiting, or diarrhea. She presently is required to use a walker. Lots of stress and anxiety regarding her home situation. PHYSICAL EXAMINATION: VITAL SIGNS: Height: 5 feet 5 inches. Weight: 213. T: 97.4, R: 20, P: 80 , BP: 157/80. HEENT: Atraumatic. EOM's are intact. No temporal artery tenderness. Lungs: Clear. Heart: Regular rhythm. Abdomen: Soft. Vascular: No edema or cyanosis. Joint Exam: No active synovitis at the DIPs, PIPs, or MCPs. She has ulnar deviation at the MCPs with some enlargement. Wrists with good range of motion. Elbows and shoulders are unremarkable. Limited exam of the hips reveal no pain referred to her groin. Knees are unremarkable. Ankles and MTPs are nontender. IMPRESSION: 1. Seropositive rheumatoid arthritis. I am going to continue her on prednisone 5 mg daily and Plaquenil 200 mg twice a day. 2. Osteoporotic T-spine fracture. She apparently has had bone densities done in [place] and she is scheduled for repeat. I understand she is presently being evaluated at the [facility]. I would recommend, depending on the DEXA, Forteo or Prolia. PLAN: I will see her back in 4 months. I have asked Secretary To The Vice President and the Division of Aging to assist Mrs. Bautista and her at this time. Thank you very much. Best regards, cc: Dr. Hang BAIRD
== END 2017-04-23 11:02 ==
LOC: RHEU 11:00
PROVIDERS: ATTEND Internal Medicine
DX: M05.9 Rheumatoid arthritis with rheumatoid factor, unspecified (principal); M80.88XA Other osteoporosis with current pathological fracture, vertebra(e), initial encounter for fracture
CPT/HCPCS: 99214; G0463

== ENCOUNTER 2017-07-21 09:29 | Outpatient (CLI) | payer OTHER | END 2017-07-21 09:30 | LOC: POD 09:29 | PROVIDERS: ATTEND Podiatrist Public Medicine | DX: B35.1 Tinea unguium (principal); L60.0 Ingrowing nail; M79.674 Pain in right toe(s); M79.675 Pain in left toe(s) | CPT/HCPCS: 11721; G0463 ==

== ENCOUNTER 2017-08-17 15:48 | Outpatient (CLI) | payer OTHER | END 2017-08-17 15:50 | LOC: LAB 15:48 | PROVIDERS: ATTEND Clinical Nurse Specialist Medical-Surgical | DX: M80.08XS Age-related osteoporosis with current pathological fracture, vertebra(e), sequela (principal); M81.0 Age-related osteoporosis without current pathological fracture; E55.9 Vitamin D deficiency, unspecified; R26.9 Unspecified abnormalities of gait and mobility | CPT/HCPCS: 36415; 82306; 82310 ==

== ENCOUNTER 2017-08-27 09:04 | Outpatient (CLI) | payer OTHER ==
--- NOTE | 2017-08-27 14:12 | OP Clinic Progress Note ---
REASON FOR VISIT: Seda Bautista returns for follow up on her seropositive rheumatoid arthritis. She is doing well on prednisone 5 mg daily and Plaquenil 200 mg twice a day. She has had no new joint deformities. No significant swelling, pain, or morning stiffness. She has osteoporosis and is presently on Forteo and doing well with that. She gets a little injection site reaction but manages to get along. Her back pain is doing well. She is using a walker. Once again, her and her came without their medication list and he has dementia causing significant anxiety. REVIEW OF SYSTEMS: Rest of the systems are reviewed and no fevers, chills, sweats, chest pain, shortness of breath, cough, wheezing, nausea, vomiting, or diarrhea. PAST MEDICAL HISTORY: 1. Right hip replacement. 2. Hypertension. 3. COPD. 4. Depression. 5. Obstructive sleep apnea. 6. Osteoarthritis. 7. Appendectomy. 8. . 9. Colostomy reversal. 10. History of a DVT. 11. Seropositive RA. 12. Osteoporosis. PHYSICAL EXAMINATION: VITAL SIGNS: Height: 5 feet 7 inches. Weight: 203. T: 97.1, R: 20, heart rate 70, BP: 135/63. She is using a walker. HEENT: Grossly unremarkable. LUNGS: Clear. HEART: Regular rate and rhythm. ABDOMEN: Soft and nontender. VASCULAR: Trace edema but no cyanosis. JOINTS: No synovitis at the DIPs, PIPs, and MCPs, wrists, elbows, shoulders, hips, knees, ankles and feet. She has ulnar deviation of her MCPs, worse on the left than the right. 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 IMPRESSION: 1. Seropositive rheumatoid arthritis, doing well on her present regimen. 2. Osteoporosis, agree with Forteo. PLAN: 1. I will see her in 6 months. 2. I asked the and the to have a list of their medications available at all times in their wallet, glove compartment of the car, and her purse. Thank you very much. Best regards, cc: Dr. Hang Suarez [facility]
== END 2017-08-27 12:29 ==
LOC: RHEU 09:04
PROVIDERS: ATTEND Internal Medicine
DX: M05.9 Rheumatoid arthritis with rheumatoid factor, unspecified (principal); M81.0 Age-related osteoporosis without current pathological fracture
CPT/HCPCS: 99214; G0463

== ENCOUNTER 2017-11-03 08:50 | Outpatient (CLI) | payer OTHER | END 2017-11-03 08:53 | LOC: POD 08:50 | PROVIDERS: ATTEND Podiatrist Public Medicine | DX: B35.1 Tinea unguium (principal); L60.0 Ingrowing nail; M79.674 Pain in right toe(s); M79.675 Pain in left toe(s) | CPT/HCPCS: 11721; G0463 ==

== ENCOUNTER 2018-06-17 10:25 | Outpatient (CLI) | payer OTHER | END 2018-06-17 10:26 | LOC: LAB 10:25 | PROVIDERS: ATTEND Clinical Nurse Specialist Medical-Surgical | DX: M81.0 Age-related osteoporosis without current pathological fracture (principal); E55.9 Vitamin D deficiency, unspecified; R26.9 Unspecified abnormalities of gait and mobility; Z87.310 Personal history of (healed) osteoporosis fracture | CPT/HCPCS: 36415; 82306; 82310 ==

== ENCOUNTER 2018-07-22 11:20 | Outpatient (CLI) | payer OTHER | END 2018-07-22 11:30 | LOC: LAB 11:20 | PROVIDERS: ATTEND Clinical Nurse Specialist Medical-Surgical | DX: M81.0 Age-related osteoporosis without current pathological fracture (principal); E55.9 Vitamin D deficiency, unspecified; R26.9 Unspecified abnormalities of gait and mobility; Z87.310 Personal history of (healed) osteoporosis fracture | CPT/HCPCS: 36415; 82310 ==

== ENCOUNTER 2018-08-23 16:00 | Emergency (ER) | payer OTHER ==
[2018-08-23 16:36] VITALS: BP 144/61
--- NOTE | 2018-08-23 17:02 | ED Physician Documentation ---
Lower Extremity Injury - HISTORIAN Historian: patient, spouse - HPI Stated Complaint: left hip pain Chief Complaint: Lower Extremity Problem Additional Information: awoke this am w/ sig lt hip pain. walks w/4wheelk walker - cleaned porch yesterday 2+hrs Where: home Severity: moderate, severe Context: twist (?). denies: fall Associated Symptoms:: denies: tingling, numbness distally, swelling, popping sensation, unable to bear weight, seizure Modifying Factors:: pain on movement (difficult wt bearing) - ROS CONST: no problems. denies: recent illness CVS/RESP: none. denies: chest pain, shortness of breath GI/: denies: problems urinating, nausea, vomiting MS/SKIN/LYMPH: none NEURO: denies: headache, head injury, anxiety, depression - PAST HX Past History: other (rheu arth htn neuropathy) Allergies/Adverse Reactions: Allergies Allergy/AdvReac Type Severity Reaction Status Date / Time cephalexin monohydrate Allergy Rash Verified 08/23/18 16:16 [From [facility]] Home Medications: Ambulatory Orders Medication Instructions Recorded Gabapentin [Neurontin] 100 mg PO HS 07/16/14 Hydrochlorothiazide 25 mg PO D 07/16/14 Meloxicam 7.5 mg PO D 07/16/14 Pramipexole Di-HCl [Mirapex] 1.5 mg PO D 07/16/14 cycloSPORINE 0.05% OPTH (NF) 1 drop EACHEYE BID 07/16/14 [Restasis 0.05% (Nf)] Aspirin [Carey] 81 mg PO DAILY tab.chew 07/28/16 Cholecalciferol [Vitamin D-3] 2,000 unit PO DAILY tablet 07/28/16 amLODIPine BESYLATE [Norvasc] 5 mg PO DAILY tablet 07/28/16 Lorazepam [Ativan] 0.5 mg PO HS #10 tablet 02/27/17 Vit C/E/Zn/Coppr/Lutein/Zeaxan 1 tab PO DAILY 02/27/17 [Preservision Areds 2 Softgel] - SOCIAL HX Smoking History: non-smoker Alcohol Use: none Drug Use: none - FAMILY HX Family History: no significant history - VITAL SIGNS Vital Signs: Vital Signs Temp Pulse Resp BP Pulse Ox 97.8 F 83 26 H 144/61 96 08/23/18 16:00 08/23/18 16:00 08/23/18 16:00 08/23/18 16:00 08/23/18 16:00 - REVIEWED ASSESSMENTS Nursing Assessment Reviewed: Yes Vitals Reviewed: Yes ED Results Lab/Radiology - Orders Orders: ED Orders Category Date Time Status HIP CT W/O [CT PELVIS W/O CONTRAST] Stat Exams 08/23/18 Completed LT HIP 2VIEW COMPLETE [RAD] Stat Exams 08/23/18 Completed Lower Extremities Injury Phy - Physical Exam General Appearance: moderate distress Gait: limited by pain Neuro/Vascular/Tendon: no vascular compromise, motor nml, sensation nml. No: abnml color, abnml warmth, abnml cap refill Head/ENT: nml inspection Neck/Back: nml inspection Resp/CVS: chest non-tender, breath sounds nml, heart sounds nml Abdomen: non-tender, other (no pulsatile pulse felt) Discharge Clincal Impression: lt hip sprain-no fall Referrals: Primary Doctor,No [Primary Care Provider] - 2 Days Condition: Good Disposition: 01 HOME, SELF-CARE Decision to Admit: NO Decision Time: 19:00
--- NOTE | 2018-08-23 18:03 | Diagnostic Imaging Report ---
RO VALDEZ [facility] [id number] [facility].[address] [address] Report Submission Date: August 23, 2018 5:40:47 PM CDT Patient Study Name: ABHIJIT CLARK Date: August 23, 2018 4:44:00 PM CDT Modality Type: DX Gender: F Description: LT HIP 2VIEW COMPLETE : 34 Institution: [facility] Physician: RO VALDEZ 2 views of the left hip History: LEFT HIP PAIN WITH WEIGHT BEARING TODAY. SUDDEN ONSET. no comparison studies 1. The study is limited by patient's body habitus and several artifacts at the left hip which may be related to clothing. 2. Bones are demineralized which limits evaluation. Within this limitation, no obvious acute fracture or dislocation of left hip 3. Lumbar fusion hardware is incompletely imaged. Large oval shaped 5.1 cm calcific density is noted adjacent to the left iliac crest Electronically signed on August 23, 2018 5:40:47 PM CDT by: Jessica BAIRD
--- NOTE | 2018-08-23 18:40 | Diagnostic Imaging Report ---
RO VALDEZ [facility] [address] [facility] [address] [place], [place]. [address] Report Submission Date: August 23, 2018 6:38:05 PM CDT Patient Study Name: ABHIJIT CLARK Date: August 23, 2018 6:19:58 PM CDT Modality Type: CT\SR Gender: F Description: CT PELVIS W/O CONTRAST : 34 Institution: [facility] Physician: RO VALDEZ CT pelvis without contrast History: Chronic pain. Technique: Transaxial computed tomographic images of the pelvis were obtained without contrast according to standard protocol. Findings: Posterior fusion is present the L4-5 level with posterior laminectomy noted. There is degenerative change of the sacroiliac joints. Right hip arthroplasty is in place. There is no evidence of hardware loosening. There is no evidence of acute fracture throughout the pelvis. The left proximal femur is intact. No evidence of hematoma identified. The bladder is normal. Diverticular present in the imaged portion of the colon. There is no free fluid. Impression: 1. No acute osseous injury. 2. Postoperative changes in the lower lumbar spine. 3. Right hip arthroplasty without evidence of loosening. Electronically signed on August 23, 2018 6:38:05 PM CDT by: Alex BAIRD
[2018-08-23] MEDS: traMADol HCL 50 MG TABLET PO ONE (19:15)
== END 2018-08-23 19:20 | disposition home or self-care (01) ==
LOC: ED 16:00
DX: S73.102A Unspecified sprain of left hip, initial encounter (principal); X58.XXXA Exposure to other specified factors, initial encounter; Y93.E9 Activity, other interior property and clothing maintenance; Y92.008 Other place in unspecified non-institutional (private) residence as the place of occurrence of the external cause; Y99.8 Other external cause status
CPT/HCPCS: 72192; 99283; 99284; 99285

== ENCOUNTER 2018-12-23 16:30 | Outpatient (CLI) | payer OTHER | END 2018-12-23 16:33 | LOC: LAB 16:30 | PROVIDERS: ATTEND Clinical Nurse Specialist Medical-Surgical | DX: M81.0 Age-related osteoporosis without current pathological fracture (principal); E55.9 Vitamin D deficiency, unspecified; Z87.310 Personal history of (healed) osteoporosis fracture | CPT/HCPCS: 36415; 82306; 82310 ==